=== PATIENT | male | born 1965 | race Caucasian/White ===

== ENCOUNTER → 2020-05-01 | Outpatient (CLI) | payer SELFPAY | LOC: M LABSMTC 11:52 | PROVIDERS: ATTEND Pediatrics | DX: Z20.828 Contact with and (suspected) exposure to other viral communicable diseases (principal) ==

== ENCOUNTER → 2021-09-24 | Outpatient (REF) | payer BC | LOC: M LAB REF 12:13 | PROVIDERS: ATTEND Internal Medicine | DX: M13.80 Other specified arthritis, unspecified site (principal) ==

== ENCOUNTER → 2021-10-16 | Outpatient (CLI) | payer BC | LOC: M RAD 11:16 | PROVIDERS: ATTEND Internal Medicine | DX: D38.3 Neoplasm of uncertain behavior of mediastinum (principal) ==

== ENCOUNTER → 2022-07-05 | Outpatient (CLI) | payer BC ==
[~2022-07-05] MED LIST: COSE1INJ; MELO15TA28
== END ==
LOC: M RAD 14:16
PROVIDERS: ATTEND Internal Medicine
DX: M06.4 Inflammatory polyarthropathy (principal)

== ENCOUNTER → 2022-07-11 | Outpatient (CLI) | payer BC | LOC: M LABSMTC 11:41 | PROVIDERS: ATTEND Anesthesiology | DX: Z01.812 Encounter for preprocedural laboratory examination (principal); Z11.52 Encounter for screening for COVID-19 ==

== ENCOUNTER 2022-07-16 07:20 | Day surgery (SDC) | payer BC ==
[~2022-07-16] VITALS: Ht 172.7 cm; Wt 94.3 kg
[~2022-07-16 07:20] MED LIST changes: +NS 1,000 ML IV ONE
[2022-07-16] MEDS ORDERED: GLYCOPYRROLATE INJ 0.2 MG/ML 2 ML VIAL As Ordered ONE (08:05)
[2022-07-16] MEDS ORDERED: LIDOCAINE 2% 100MG/5ML SDV (FOR ANES.) As Ordered ONE (08:05)
[2022-07-16] MEDS ORDERED: propofoL 200 MG/20 ML VIAL As Ordered ONE ×2 (08:05→08:32)
[2022-07-16 09:20] VITALS: BP 120/85
== END 2022-07-16 09:33 | disposition home or self-care (01) ==
LOC: M OPP 07:20
PROVIDERS: ATTEND Internal Medicine Gastroenterology
DX: Z12.11 Encounter for screening for malignant neoplasm of colon (principal); Z86.010 Personal history of colon polyps; D12.0 Benign neoplasm of cecum; D12.4 Benign neoplasm of descending colon; K57.30 Diverticulosis of large intestine without perforation or abscess without bleeding; K64.8 Other hemorrhoids; K21.00 Gastro-esophageal reflux disease with esophagitis, without bleeding; G47.33 Obstructive sleep apnea (adult) (pediatric); Z99.89 Dependence on other enabling machines and devices; Z79.899 Other long term (current) drug therapy; Z88.0 Allergy status to penicillin; Z80.3 Family history of malignant neoplasm of breast

== ENCOUNTER → 2024-07-13 | Outpatient (REF) | payer OTHER ==
[~2024-07-13] MED LIST changes: -NS 1,000 ML IV ONE
[2024-07-13 14:37] LABS: FERRITIN 129.9 NG/ML (10.5-307.3)
== END ==
LOC: M LAB REF 13:19
PROVIDERS: ATTEND Internal Medicine
DX: M25.562 Pain in left knee (principal)

== ENCOUNTER → 2024-07-26 | Outpatient (CLI) | payer OTHER | LOC: M PLAIMG 13:38 | PROVIDERS: ATTEND Nurse Practitioner | DX: M43.06 Spondylolysis, lumbar region (principal) ==